=== PATIENT | female | born 1950 | race Caucasian/White ===

== ENCOUNTER 2019-09-27 09:29 | Day surgery (SDC) | payer MEDICARE, OTHER, SELFPAY ==
--- NOTE | 2019-09-22 10:59 | EKG12_ITS ---
Test Reason : PREOP Blood Pressure : / mmHG Vent. Rate : 066 BPM Atrial Rate : 066 BPM P-R Int : 122 ms QRS Dur : 084 ms QT Int : 408 ms P-R-T Axes : 035 -07 028 degrees QTc Int : 427 ms Normal sinus rhythm with sinus arrhythmia Normal ECG Confirmed by RUBIN GOULD ([id number]), editorial project manager ALLYSSA BERNABE ([id number]) on 09/24/2019 11:30:43 AM Referred By: Castro Hollingsworth Confirmed By:RUBIN GOULD
[2019-09-22 11:14] LABS: Hematocrit 47.6 % (37-47); Hemoglobin 15.5 g/dL (12.0-15.0); Mean Corp Hgb Conc 32.6 g/dL (32-36); Mean Corpuscular Volume 86.1 fL (81-99); Mean Platelet Vol. 10.2 fl (6.2-12.0); Platelet Count 204 K/mm3 (150-450); RBC Distribution Width CV 12.7 % (11.6-14.6); RBC Distribution Width SD 39.8 fl (35.1-43.9); Red Blood Count 5.53 M/mm3 (4.2-5.4); White Blood Count 7.1 K/mm3 (4.4-11.0)
[2019-09-22 11:25] LABS: International Normalized Ratio 1.1; Partial Thromboplast Time 28.1 Seconds (24.1-36.2); Prothrombin Time (Protime)PT. 13.5 SECONDS (11.7-14.9)
[2019-09-22 11:45] LABS: AST(SGOT) 13 U/L (15-37); Alanine Aminotransfer ALT/SGPT 17 U/L (13-56); Albumin, Serum 3.7 g/dL (3.2-5.0); Alkaline Phosphatase 62 U/L (45-117); Anion Gap 7 (5-15); BUN 18 mg/dL (7-18); Calcium,Total 8.8 mg/dL (8.5-10.1); Chloride 106 mmol/L (98-107); Creatinine, Serum 0.86 mg/dL (0.55-1.02); EST Glomerular Filtration Rate 69 mL/min (>60); Est Glom Filt Rate - Afr Amer 84 mL/min (>60); Globulin 3.7 g/dL (2.2-4.2); Glucose 85 mg/dL (74-106); Potassium 4.4 mmol/L (3.5-5.1); Protein, Total 7.4 g/dL (6.4-8.2); Sodium Level 141 mmol/L (136-145)
--- NOTE | 2019-09-26 18:00 | PCM.HP.BLA ---
History and Physical Date of Admission: 09/27/19 Surgical History and Physical Hortencia Smith, a 69 year old female 4 0 0 0 4, presents for Vaginal Hysterectomy and AP Repair and possible SSF on September 27, 2019 at 11:10. -- Total UV Prolapse -- Hortencia is referred per Dr Freed for uterine prolapse. She relates 2-3yrs ago she noted a bulge from the vagina with any vigorous activity. Pt sts she was able to deal with it until May 2019 when she started spotting. She has been postmenopausal for 15-20yrs with no spotting until the past 4mos. Pt sts she had a lot of pressure and irritation for approx 4wks in Jun, but that has subsided however she still notes the bulge with any activity. JT brandin Hortencia is being seen for pre op visit. Pt to have TVH and A and P repair with Dr. Hollingsworth 09-27-19. Pt having surgery due to Uterovaginal Prolapse Complete. Medeications and allergies are up to date. Consents signed for surgery and information gone over with pt. AM All questions answered. Plan Vag Hyst, AP Repair, possible SSF. Pre-op labs: Glu 85, BUN 18, Cr 0.86, Hg 15.5, WBC 7.1, PTT 28.1, PT 13.5, INR 1.1 Plt 204. Uterine prolapse, postmenopausal bleeding which began 2-3yrs ago. Hortencia claims it started gradually and has been present 2-3yrs. It occurs intermittantly. It is located in the vagina. Hortencia characterizes it to be non-radiating. Hortencia characterizes the quality annoying. Severity is moderate but now worsening. It is aggravated by any activity. It is relieved by lying down. 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 MEDICATIONS HISTORY: Current medications prescribed by our practice are: 1. estradiol 0.01% (0.1 mg/gram) vaginal cream, one half gram per vagina twice weekly ALLERGIES: No Known Drug Allergies Review of Systems: GENERAL - Denies fever, or chills SKIN - Denies skin changes EYES - Denies visual changes EARS - Denies difficulty hearing NOSE - Denies nasal congestion or bleeding MOUTH - Denies sore throat or difficulty swallowing NECK - Denies pain or swelling RESPIRATORY - Denies shortness of breath or wheezing CARDIOVASCULAR - Denies palpitations or chest pain GASTROINTESTINAL - Denies nausea, vomiting, diarrhea, constipation GENITOURINARY - Denies dysuria, frequency of urination, incontinence of urine MUSCULOSKELETAL - Denies joint or muscle pain NEUROLOGICAL - Denies localized numbness or weakness PSYCHIATRIC - Denies depression or anxiety ENDOCRINE - Denies heat or cold intolerance, weight loss or gain HEMATO-IMMUNOLOGIC - Denies excesive bleeding with cuts SOCIAL HISTORY: Alcohol Use - denies drinking Diet - no special diet 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, active Seat Belt Use - always Employer - Retired Illicit Drug Use - denies use of street drugs Sexual Activity - Spouse-Sig Other Occupation - Retired, 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 Control - postmenopausal FAMILY HISTORY: nc MENSTRUAL HISTORY: LMP Known?- Postmenopausal PAST PREGNANCIES: Total Pregnancies - 4; Full Term Pregnancies - 4; Premature - 0; Abortions, Induced - 0; Abortions, Spontaneous - 0; Ectopics - 0; Multiple Births - 0; Living Children - 4 PHYSICAL EXAM BP- 126/90 Sitting, Right arm, regular cuff Temp- 98.2 Taken Orally Weight- 157.52577 lbs Height- 64.00 inch BMI:27.14 CONSTITUTIONAL - NAD, well nourished, and well developed SKIN - No rash, lesions, or ulcers HEENT - Normocephalic, PERRLA, EOMI NECK - No nodes, no nuchal rigidity and thyroid normal size and texture LYMPH NODES - Palpation of lymph nodes in neck and groins within normal limits LUNGS - CTA x2 without wheezes, crackles or rales CARDIAC - Regular rate and rhythm without rubs, murmurs, or gallops ABDOMEN - Without hepatosplenomegaly, distention, masses, rebound, or guarding; normal bowel sounds; no hernias EXTREMITIES - No edema or calf tenderness NEUROLOGICAL - Cranial nerves II-XII grossly intact PSYCHIATRIC - A and O to time, place, person, mood and affect DETAILED PELVIC EXAM External Genital Vagina - non-tender without lesions Urethra/Urethral Meatus - non-tender Bladder - non-tender Vagina - loss of rugae and total UV Prolapse Cervix - protrudes 3-4 outside of the vagina, dry, irritated Uterus - multiparous size 6 cm & wt 75-125 g Adnexa - clear without massess or tenderness ASSESSMENT/PLAN: 1. Uterovaginal Prolapse Complete Discussed options at length including treating with a pessary or proceeding with surgical repair. Desires the surgery. Plan to proceed with Vag Hyst and AP Repair, possible SSF. Discussed RBAs and all questions answered. Start intravaginal estrogen to aid with surgical repair.
[2019-09-27] VITALS (12 sets, daily range): BP systolic 121–157; BP diastolic 53–86; PULSE 56–81; RESP 16–18; TEMP 36.5–36.7; O2SAT 94–97; BMI 26.9
[2019-09-27] MEDS: Lactated Ringers 1,000 ML 100 ML IV (10:06)
--- NOTE | 2019-09-27 11:50 | HYST_PTH ---
PATIENT: RYANNE PARDO LOC: [facility] [place] U#:[id number] AGE/SX: 69/F ROOM: RE09/27/[address]: Dr. Castro Hollingsworth MD : [id number] BED: DIS: 09/28/2019 SPEC #: [id number] RECD: 09/27/19 15:42 STATUS: JOSE REKaran #: [id number] WENDY: 09/27/19 11:[address]: Castro Hollingsworth DEPT: SURGICAL PATHOLOGY RECD BY: Jaiem Lee ENTERED: 09/28/19 07:24 SP TYPE: HYSTERECT OTHR DR: Dr. Abad Freed MD Tissues: Uterus, NOS Procedures: Surgery Specimen Level II Surgery Specimen Level V HEADER OPERATION: Total vaginal hysterectomy, A & P repair PRE-OP DIAGNOSIS: Uterovaginal prolapse TISSUE SUBMITTED: Uterus and cervix with vaginal mucosa MICROSCOPIC DIAGNOSIS Uterus, hysterectomy: Cervix - chronic inflammation, nabothian cysts, squamous metaplasia and hyperkeratosis. Endometrium - inactive endometrium with cystic change. Myometrium - hyalinized and calcified leiomyoma, adenomyosis and calcifications of vessel galvez. Vaginal mucosa, anterior and posterior repair; Mild chronic inflammation and hyperkeratosis. AM:leah 09/29/19 MICROSCOPIC DESCRIPTION Slides are reviewed. GROSS DESCRIPTION Received in fixative is one container labeled with the patient's name and designated uterus and cervix with vaginal mucosa. The specimen consists of a hysterectomy specimen consisting of uterus with cervix and detached fragments of mucosal tissue. The uterus with cervix weighs 58 gm and measures 10 x 5 x 3 cm. The serosal surface is bryan, glistening. The ectocervical mucosa is unremarkable. The external os is semicircular and slit-like in contour. The endocervical canal measures 5.5 cm in length and the endocervical mucosa is unremarkable. The endocervical canal is markedly smooth without any mass. The triangular endometrial cavity measures 4 cm in length and 1.5 cm in width. The endometrium is bryan, glistening, focally congested without any mass lesion and measures <0.1 cm in thickness. Sections of the uterine wall reveal a bryan nodular mass measuring 0.5 cm in diameter. The uninvolved uterine wall measures up to 1.5 cm in thickness. Also present in the container are detached pieces of mucosal tissue measuring in aggregate 5.5 x 3.5 x 0.5 cm. Numerous instrumentation taveras are noted. No mucosal lesion is identified. Habitat Conservation Planner sections are submitted in eight cassettes as follows: 1 - anterior cervix, 2 - posterior cervix, 3 & 4 - anterior uterine wall, 5 & 6 - posterior uterine wall, 7 - nodular mass, 8??mucosal tissue. / CLINTON:leah 09/28/19 TC:1 CPT: 00369, 80396
[2019-09-27] MEDS: Lubricating Jelly 60 GM Tube 30 GM TOPICAL (11:58)
--- NOTE | 2019-09-27 14:10 | OP.PCM_ITS ---
Report of Operation Date of Procedure: 09/27/19 Pre-Operative Diagnosis: Total Uterovaginal Prolapse, Cystocele, Rectocele Post-Operative Diagnosis: Total Uterovaginal Prolapse, Cystocele, Rectocele Surgery/Procedure Performed:: Vaginal Hysterectomy and Anterior Posterior Repair Description of Surgical Findings:: Cervix which prolapses 4 cm outside the vaginal introitus with tenaculum pulled down. Overall 8 cm uterus with large cystocele and rectocele. bilingual kindergarten teacher: Malia Lomeli Type of Anesthesia:: General - Endotracheal Anesthesiologist: Sonny Montana Specimen's removed: Uterus and vaginal mucosa Drains: Herrera to straight drain Estimated Blood Loss (mL): 100 cc Fluids Replaced: Crystalloid Description of Procedure: Surgeon: Castro Hollingsworth MD, FACOG Indications: This is a 69-year-old who is been having problems with pressure and total uterovaginal prolapse. Conservative measures have not been helpful. The patient declines pessary use. Given this the patient desires that we proceed the above procedure. She has been counseled regarding the risk and indications of this procedure including the possibility of bleeding, infection, and injury to surrounding structures such as bowel bladder. All questions were answered. Procedure: Patient was taken to the operating room where after induction of general anesthesia she was placed in the dorsal lithotomy position and prepped and draped in the usual sterile fashion. A Herrera catheter was placed. Anterior cervix was grasped with a tenaculum and anterior cervix circumscribed with cautery on a setting of 35 W coagulation. Anterior vaginal mucosa was undermined and anterior peritoneum was entered after 3 or 4 bites. The posterior aspect of the cervix was circumscribed with a knife and posterior peritoneum easily entered. Progressive bites were taken on either side of the uterine cervix and each pedicle ligated with 0 Vicryl suture. Superior pedicles were ligated ?2 with 0 Vicryl suture and sidewall pedicles were examined and oversewn where necessary with [id number] 0 Vicryl suture to achieve hemostasis. Posterior vaginal cuff was oversewn with running locked 0 Vicryl suture. Hemostasis was noted and peritoneum was closed in a pursestring fashion incorporating superior pedicles into the stitch. Vaginal cuff was then closed front to back with interrupted [id number] 0 Vicryl suture. Hemostasis was noted. Attention was turned toward the anterior repair portion of the procedure. Anterior vaginal mucosa was undermined and divided and then imbricated toward the midline with interrupted 0 Vicryl sutures. Vaginal mucosa was trimmed and then closed with interrupted 2-0 chromic suture. Vaginal cuff was then closed front to back with interrupted [id number] 0 Vicryl suture. Hemostasis was noted. Attention was turned toward the posterior repair portion of the procedure. Remnants of the hymenal ring were grasped with Allises and a V-shaped incision was made in the perineum. Rectovaginal mucosa was then undermined divided and then imbricated toward the midline with interrupted 0 Vicryl suture. Vaginal mucosa was trimmed and then closed with running locked 2-0 chromic suture. Remnants of the bulbocavernosus muscles were identified and brought toward the midline with a single [id number] 0 Vicryl suture and perineum was closed in the usual fashion with running and subcuticular, and igbahv-[id number] 2-0 chromic suture. Hemostasis was noted. Herrera catheter was opened and clear yellow urine was noted. Vagina was packed with iodoform tape. Patient tolerated the procedure well was taken to recovery room in satisfactory condition; sponge instrument and needle counts were all reportedly correct. Estimated blood loss for the case was 100 cc. Cefotan 2 g IV was given prior to beginning the operative procedure. There were no apparent complications of the surgery. Specimen to pathology was uterus and vaginal mucosa. Grafts/Implants Used: None - Complications None - Admit VTE Documentation VTE Present on Admission: Yes VTE Mechan Device Prophylaxis: SCD's VTE Pharm Prophylaxis ordered?: Yes
--- NOTE | 2019-09-27 14:17 | DCINST_ITS ---
Discharge Diet: No Restrictions Discharge Activity: Return to Normal Activity, May Not Drive - while taking narcotic pain medications., May Shower, May Take a Tub Bath May resume sexual activity in: 6-8 weeks Call your doctor if your incision/area has: Continuous Slow Oozing, Sudden Inc reased Bleeding, Increased Pain/ Swelling, Increased Redness, Foul Smelling Discharge Call your doctor if you observe: Fever of 101 or Higher, Inability to urinate, Inability to have a bowel movement, Using more than one pad per hour Allergies/Adverse Reactions: Allergies No Known Allergies Allergy (Verified 09/27/19 09:55) Medications to take at Discharge Escitalopram Oxalate [Lexapro] 10 mg PO DAILY 09/21/19 Fluticasone/Salmeterol [Advair 100-50 Diskus] 1 puff IH DAILY 09/21/19 Methylcellulose [Fiber] 500 mg PO DAILY 09/21/19 Multivitamin with Minerals [Multiple Vitamin] 1 ea PO DAILY 09/21/19 Red Yeast Rice 600 mg PO QHS 09/21/19 hydroCHLOROthiazide [Hydrochlorothiazide] 12.5 mg PO DAILY 09/21/19 Docusate Sodium [Colace] 100 mg PO BID PRN PRN #60 cap 09/27/19 Oxycodone [Oxyir] 5 mg PO Q6H PRN PRN 7 Days #10 tablet 09/27/19 The following prescriptions were given: Docusate Sodium [Colace] 100 mg PO BID PRN PRN #60 cap PRN Reason: Constipation Transmission Status: Pending to [id number] Oxycodone [Oxyir] 5 mg PO Q6H PRN PRN 7 Days #10 tablet PRN Reason: Pain Score 6-10/10 Transmission Status: Sent to [facility] Primary Care Physician: Abad Freed MD [Primary Care Provider] - Test Results: Test results from this visit will be discussed in further detail at your follow- up appointment, if applicable. Please Follow Up With: Castro Hollingsworth MD When: 2 to 3 weeks
[2019-09-27] MEDS: Dextrose 5%-Lactated Ringers 1,000 ML 150 ML IV ×2 (16:30→22:35)
[2019-09-27] MEDS: oxyCODONE 5 MG Tablet PO (18:32)
[2019-09-27] MEDS: Budesonide Respules 0.5 MG/2 ML AMPUL.NEB. INHALATION (19:06)
[2019-09-27] MEDS: Albuterol 2.5 MG/3 ML VIAL.NEB. INHALATION (19:06)
[2019-09-27] MEDS: Ketorolac 15 MG/ML Vial IV (19:33)
[2019-09-28 02:30] VITALS: BP 114/56; PULSE 59; RESP 16; TEMP 36.7; O2SAT 97
[2019-09-28] MEDS: Ketorolac 15 MG/ML Vial IV (02:33)
[2019-09-28] MEDS: Dextrose 5%-Lactated Ringers 1,000 ML 150 ML IV (05:45)
[2019-09-28] MEDS: 0.9% Saline Lock 10 ML Syringe IV (05:45)
[2019-09-28] MEDS: Ketorolac 10 MG Tablet PO (06:27)
[2019-09-28 06:41] VITALS: PULSE 73; RESP 18; O2SAT 94
[2019-09-28] MEDS: Budesonide Respules 0.5 MG/2 ML AMPUL.NEB. INHALATION (06:41)
[2019-09-28] MEDS: Albuterol 2.5 MG/3 ML VIAL.NEB. INHALATION (06:41)
[2019-09-28 06:54] LABS: Hematocrit 39.7 % (37-47); Hemoglobin 12.9 g/dL (12.0-15.0); Mean Corp Hgb Conc 32.5 g/dL (32-36); Mean Corpuscular Hgb 28.2 pg (27.0-32.0); Mean Corpuscular Volume 86.9 fL (81-99); Mean Platelet Vol. 10.7 fl (6.2-12.0); Platelet Count 147 K/mm3 (150-450); RBC Distribution Width CV 12.8 % (11.6-14.6); RBC Distribution Width SD 40.4 fl (35.1-43.9); Red Blood Count 4.57 M/mm3 (4.2-5.4); White Blood Count 10.8 K/mm3 (4.4-11.0)
[2019-09-28 07:54] LABS: Creatinine, Serum 0.91 mg/dL (0.55-1.02); EST Glomerular Filtration Rate 65 mL/min (>60); Est Glom Filt Rate - Afr Amer 79 mL/min (>60); Estimated Creatinine Clearance 48.96 ml/min
[2019-09-28 08:10] VITALS: BP 114/58; PULSE 80; RESP 16; TEMP 36.8; O2SAT 100
--- NOTE | 2019-09-28 08:46 | PCM.PN.OB ---
Subjective: Patient without complaints. Minimal vaginal bleeding. Pain well controlled. Vaginal pack and Herrera catheter discontinued this a.m. - Physical Exam Vitals/I&O's: Vital Signs Temp Pulse Resp BP Pulse Ox 98.0 F 73 18 114/56 L 94 09/28/19 02:30 09/28/19 06:41 09/28/19 06:41 09/28/19 02:30 09/28/19 06:41 Oxygen Flow Rate (L/min) 2 Oxygen Delivery Method Room Air Weight: 157 lb 3.033 oz Body Mass Index (BMI) 26.9 Intake and Output for Last 24 Hours 09/26/19 09/27/19 09/28/19 23:59 23:59 23:59 Intake Total 2062.5 / 2162.5 1810 / 1810 Output Total 200 / 600 560 / 560 Balance 1862.5 / 1562.5 1250 / 1250 Comment: Minimal bleeding. Hemoglobin and creatinine okay. Good UOP. Laboratory Results 09/27/19 09:50: Blood Type B NEGATIVE, Antibody Screen NEGATIVE 09/28/19 04:45: WBC 10.8, RBC 4.57, Hgb 12.9, Hct 39.7, MCV 86.9, MCH 28.2, MCHC 32.5, RDW Std Deviation 40.4, RDW Coeff of Johnny 12.8, Plt Count 147 L, MPV 10.7 09/28/19 04:45: Creatinine 0.91, Estim Creat Clear Calc 48.96, Est GFR (MDRD) Af Amer 79, Est GFR (MDRD) Non-Af 65 Current Medications Acetaminophen (Tylenol) 1,000 mg PO Q8H PRN PRN PRN Reason: Pain Score 1-3/10 or Fever Albuterol Sulfate (Ventolin Aerosols) 2.5 mg INHALATION Q6HWA.RT JORDEN Last Admin: 09/28/19 06:41 Dose: 2.5 mg Documented by: Budesonide (Pulmicort Aerosol) 0.5 mg INHALATION Q12H.RT JORDEN Last Admin: 09/28/19 06:41 Dose: 0.5 mg Documented by: Docusate Sodium (Colace) 100 mg PO DAILY PRN PRN PRN Reason: Constipation Escitalopram Oxalate (Lexapro) 10 mg PO DAILY JORDEN Hydrochlorothiazide () 12.5 mg PO DAILY [facility] Hydromorphone HCl (Dilaudid Inj) 0.5 mg IV Q3H PRN PRN PRN Reason: Pain Score 4-10/10 Dextrose/Lactated Ringer's () 1,000 mls @ 150 mls/hr IV .Q6H40M [facility] Last Infusion: 09/28/19 06:20 Dose: 150 mls/hr Documented by: Ketorolac Tromethamine (Toradol) 10 mg PO Q6 [facility] Stop: 10/02/19 12:01 Last Admin: 09/28/19 06:27 Dose: 10 mg Documented by: Ondansetron HCl (Zofran) 4 mg IV Q4H PRN PRN PRN Reason: NAUSEA Oxycodone HCl (Oxyir) 5 mg PO Q4H PRN PRN PRN Reason: Pain Score 4-10/10 Last Admin: 09/27/19 18:32 Dose: 5 mg Documented by: Simethicone (Mylicon) 80 mg PO [facility] Last Admin: 09/28/19 08:15 Dose: 80 mg Documented by: Sodium Chloride () 10 - 40 ml IV UD PRN PRN Reason: SALINE FLUSH Last Admin: 09/28/19 05:45 Dose: 10 ml Documented by: Medical Necessity - Tobacco Use Smoking Status: Never smoker Tobacco Use: Non-smoker Assessment/Plan Doing well postoperative day #1 status post vaginal hysterectomy and anterior posterior repair. Vaginal pack was removed. Will release to home when able to void on own.
== END 2019-09-28 10:39 | disposition home or self-care (01) ==
LOC: SDC 09:30 → AC 09:37 → MS3 14:53
PROVIDERS: Referring Provider Obstetrics & Gynecology; Visit Provider Obstetrics & Gynecology
PROC: (CPT 58260; principal; 2019-09-27 11:30)
DX: N81.3 Complete uterovaginal prolapse (principal); N88.8 Other specified noninflammatory disorders of cervix uteri; D25.9 Leiomyoma of uterus, unspecified; N80.0 Endometriosis of uterus; I10 Essential (primary) hypertension; J45.909 Unspecified asthma, uncomplicated; F32.9 Major depressive disorder, single episode, unspecified; Z79.899 Other long term (current) drug therapy; Z78.0 Asymptomatic menopausal state
CPT/HCPCS: 00940; 57260; 58260; 36415; 80053; 82565; 85027; 85610; 85730; 86850; 86900; 86901; 88302; 88307; 93005; 94640; 99251; J7040; J7120; A4216; G0463; J2405